=== PATIENT | female | born 1960 | race Two or more races ===

== ENCOUNTER 2023-02-28 08:21 | Emergency (ER) | payer OTHER ==
[~2023-02-28] VITALS: Ht 165.1 cm; Wt 74.8 kg
== END 2023-02-28 10:40 | disposition home or self-care (01) ==
LOC: ER 08:21
DX: R10.31 Right lower quadrant pain (principal); Z88.8 Allergy status to other drugs, medicaments and biological substances

== ENCOUNTER 2023-03-03 09:47 | Emergency (ER) | payer OTHER ==
[~2023-03-03] VITALS: Ht 157.5 cm; Wt 81.6 kg
[2023-03-03] MEDS ORDERED: KETO10TA2 PO (11:43)
[2023-03-03] MEDS ORDERED: NORFLEX100MG PO (11:43)
[2023-03-03] MEDS ORDERED: NEURONTIN300 MG PO (11:43)
== END 2023-03-03 11:54 | disposition home or self-care (01) ==
LOC: ER 09:47
DX: B02.9 Zoster without complications (principal); Z88.8 Allergy status to other drugs, medicaments and biological substances